=== PATIENT | male | born 1995 | race Caucasian/White ===

== ENCOUNTER 2016-09-16 11:38 | Day surgery (SDC) | payer OTHER ==
--- NOTE | ~2016-09-16 | OP ---
Record Of Operation [facility] [address] [place]. [address] NAME: DILIP CRAMER : 89 STATUS : [facility]#: [id number] AGE: 21 ADM/REG DATE : 09/16/16 MR#: [id number] REPORT SERV DATE: 09/16/16 DICTATED BY: REJI ABREU DATE: 09/16/16 REPORT STATUS : Draft TRANSCRIBED BY: MODFabio DATE: 09/16/16 DATE OF PROCEDURE: 09/16/2016 PROCEDURES: 1. Septoplasty. 2. Bilateral inferior turbinate reduction. PREOPERATIVE DIAGNOSES: 1. Septal deviation. 2. Turbinate hypertrophy. POSTOPERATIVE DIAGNOSES: 1. Septal deviation. 2. Turbinate hypertrophy. ANESTHESIA: General endotracheal. COMPLICATION: None. FINDINGS: The patient was taken to the OR, placed in supine position. Then was anesthetized, prepped, and draped in standard fashion. Nose vasoconstricted and anesthetized with 1% Xylocaine with epinephrine as injection as well as Man-Synephrine topically placed on cottonoids. The patient had a severe right septal deviation. A left hemitransfixion incision was made. Mucoperichondrial and mucoperiosteal flaps were elevated. Cartilaginous septum was dislocated from the bony septum. The bony deformity was incised with Baker scissors and removed with [place] Alonzo forceps and Blanca forceps. Cartilaginous portion of the spur removed with a [place] elevator and Blanca forceps. Caudal septum was overriding the crest to the right. Inferior strip of caudal cartilage removed. Septum then set more in the midline with still though deviation of the right maxillary crest. A much greater than 1 cm portion of caudal cartilage was preserved. The deformed maxillary crest was shaved with an endoscopic septal bur. Next, a hemitransfixion incision was closed with 4-0 chromic suture. Caudal septum was mattressed with Vicryl solange. The patient then had a turbinate blade inserted along the head of the left inferior turbinate. It was advanced to the posterior tip. In a wave-like fashion, the stroma of the turbinate was removed from posterior to anterior direction. The blade was turned medially to the anterior head of the turbinate for a more aggressive dissection. The turbinate then was multiply outfractured with a [place] elevator and then outfractured with a [place] elevator. Same procedure performed on the opposite side with additional trimming of the inferior edge of the turbinate performed. The patient was awakened, extubated, and taken to the recovery room in good condition. MIGUEL/ELIZABETH Reji Record Of Operation [address] [place]. [address] NAME: DILIP CRAMER : [birth year] STATUS : [facility] PAT#: [id number] AGE: 21 ADM/REG DATE : 09/16/16 MR#: [id number] REPORT SERV DATE: 09/16/16 DICTATED BY: REJI ABREU DATE: 09/16/16 REPORT STATUS : Draft TRANSCRIBED BY: ELIZABETH DATE: 09/16/16 Yomaira Abreu / [id number] CC: Reji Abreu M.D.
[~2016-09-16 11:38] MED LIST: *DENIES; DURICEF PO; PCET PO; PERCOCET1 TA4 PO; PROVHFA INH
== END 2016-09-16 16:22 | disposition home or self-care (01) ==
LOC: SDC 11:38
PROVIDERS: Otolaryngology
PROC: 09SM0ZZ Reposition Nasal Septum, Open Approach (ICD-10-PCS; principal; 2016-09-16 12:45)
DX: J34.2 Deviated nasal septum (principal); J34.3 Hypertrophy of nasal turbinates; F90.9 Attention-deficit hyperactivity disorder, unspecified type; Z88.8 Allergy status to other drugs, medicaments and biological substances; J45.909 Unspecified asthma, uncomplicated
CPT/HCPCS: 30130 ×2; 30520; 85014; 85018; 85730; 88300; J0690; J1170; J2175; J2250; J2405; J2710; J3010; A9270-GY